=== PATIENT | male | born 1955 | race Caucasian/White ===

== ENCOUNTER → 2016-06-23 | Outpatient (CLI) | payer BC | LOC: RAD 07:34 | PROVIDERS: ATTEND Family Medicine | DX: R14.0 Abdominal distension (gaseous) (principal) | CPT/HCPCS: 76700 ==

== ENCOUNTER 2016-07-14 06:52 | Day surgery (SDC) | payer BC ==
[2016-07-14] VITALS (9 sets, daily range): BP systolic 123–161; BP diastolic 66–91
[~2016-07-14] VITALS: Ht 180.3 cm; Wt 86.0 kg
[~2016-07-14 06:52] MED LIST: LACTATED RINGERS 1,000 ML IV SCH; SODIUM CHLORIDE FLUSH 3 ML SYR IV PRN
[2016-07-14] MEDS ORDERED: MIDAZOLAM 2 MG/2 ML (VERSED) VIAL ONE (07:29)
[2016-07-14] MEDS ORDERED: PROPOFOL 20 ML IV ONE (07:29)
[2016-07-14] MEDS ORDERED: ALFENTANIL 500 MCG/ML (ALFENTA) 5 ML AMP IV ONE ×2 (07:29)
[2016-07-14] MEDS ORDERED: FLUMAZENIL (ROMAZICON) 0.1 MG/ML 5 ML VIAL ONE (08:44)
[2016-07-14] MEDS ORDERED: NALOXONE 0.4 MG/ML (NARCAN) 1 ML VIAL ONE (08:44)
--- NOTE | 2016-07-14 09:00 | NUR ---
KIM MENDOZA CRNA NOTIFIES OF PATIENT'S POTENTIAL FOR SLEEP APNEA DIAGNOSIS. INFORMS THAT PATIENT SHOULD HAVE SLEEP STUDY DONE TO CONFIRM THIS DIAGNOSIS. PATIENT WILL STAY IN ASC 3 HOURS FOR MONITORING A SLEEP APNEA PATIENT. PATIENT EDUCATED ON THIS MATTER. PATIENT DENIES HAVING EPISODES OF APNEA DURING PROCEDURE OR AT HOME. THIS NURSE CONTINUES TO REMIND PATIENT NEED FOR STAYING FOR 3 HOURS FOR MONITORING.
== END 2016-07-14 11:40 | disposition home or self-care (01) ==
LOC: ASC 06:52
PROVIDERS: ATTEND Surgery
DX: Z12.11 Encounter for screening for malignant neoplasm of colon (principal); K63.5 Polyp of colon; I10 Essential (primary) hypertension
CPT/HCPCS: 45381; 45385; J2250; J2310; J3490; J7120